=== PATIENT | male | born 1965 | race Caucasian/White ===

== ENCOUNTER 2018-06-13 11:13 | Emergency (ER) | payer SELFPAY ==
[2018-06-13] MEDS ORDERED: Sodium Chloride 0.9% 1,000 ML IV ONE (12:11)
[2018-06-13] MEDS ORDERED: Aspirin 325 mg EC Tablets PO STA (12:11)
--- NOTE | 2018-06-13 12:14 | C.PDOC ---
History Of Present Illness 53 yo male w/PMhx of HTN, NIDDM come in for evaluation of Left sided chest pain gradually developed for past 3 days. Pt reports, pain is left sided, more reproducible with intermittent radiation to left upper back ( periscapular ), (+) intermittent dizziness, mild headache. Pt denies fever, chills, recent illness, denies severe headache, vertigo, neck pain, drooling, dysphagia, dyspnea, SOB, palpitation, abd. pain, V/D, UTI sx, denies recent travel or known sick contact. AT the time of evaluation, appears comfortable, not in any apparent distress. Time Seen by Provider: 06/13/18 12:01 Chief Complaint (Nursing): Chest Pain History Per: Patient Past Medical History Reviewed: Historical Data, Nursing Documentation, Vital Signs - Medical History PMH: Diabetes, HTN Family History: States: No Known Family Hx - Social History Hx Tobacco Use: No Hx Alcohol Use: No Hx Substance Use: No - Immunization History Hx Tetanus Toxoid Vaccination: No Hx Influenza Vaccination: No Hx Pneumococcal Vaccination: No Review Of Systems Except As Marked, All Systems Reviewed And Found Negative. Constitutional: Negative for: Fever, Chills Eyes: Negative for: Vision Change ENT: Negative for: Nose Discharge, Nose Congestion Cardiovascular: Positive for: Chest Pain. Negative for: Palpitations, Orthopnea, Edema, Light Headedness Respiratory: Negative for: Cough, Shortness of Breath Gastrointestinal: Positive for: Nausea. Negative for: Vomiting, Abdominal Pain, Diarrhea Genitourinary: Negative for: Dysuria Musculoskeletal: Negative for: Neck Pain Skin: Negative for: Rash Neurological: Positive for: Headache, Dizziness. Negative for: Weakness, Numbness, Altered Mental Status Physical Exam - Physical Exam Appears: Well, Non-toxic, No Acute Distress Skin: Normal Color, Warm, Dry, No Rash Head: Normacephalic Eye(s): bilateral: PERRL Nose: No Flaring, No Discharge Oral Mucosa: Moist Throat: No Erythema, No Drooling Neck: Trachea Midline, Supple Chest: Symmetrical, No Deformity, Tenderness (mild tenderness over left anterior chest wall and over left periscapular area. ), No Ecchymosis, No Subcutaneous Emphysema Cardiovascular: Rhythm Regular, No Murmur, No JVD Respiratory: No Accessory Muscle Use, No Rales, No Rhonchi, No Stridor, No Wheezing Gastrointestinal/Abdominal: Soft, No Tenderness, No Distention, No Guarding Back: No CVA Tenderness Extremity: Normal ROM, No Pedal Edema, No Deformity, No Swelling Neurological/Psych: Oriented x3, Normal Speech ED Course And Treatment - Laboratory Results Result Diagrams: 06/13/18 12:19 12 12:19 Lab Interpretation: No Acute Changes ECG: Interpreted By Me, Viewed By Me ECG Rhythm: Sinus Rhythm ECG Interpretation: Normal Interpretation Of ECG: SR@77/min, NAD, no acute T wave oir ST-T changes - Radiology CXR: Interpreted by Me, Viewed By Me, Read By Radiologist - Other Rad CXR X-Ray: Read By Radiologist Interpretation: Impression: Few small nodules/nodular densities in the upper to mid lung zones. Correlation with prior study and or chest CT may be helpful if clinically indicated. No focal infiltrate or effusion. Tortuous aorta. Progress Note: Pt was OBS in ED for 2 hours and reports " no pain now". On re- eval, pt is afebrile, hemodynamicaly stable. non-toxic. PulsEOx 100% RA. ENT: no acute findings. neck: Supple, (-) carotid bruits B/L, (-) JVD. Lungs: CTA B/L, BS equla B/L. CVS: (+)S1S2, reg. Abd: benign. Neuorlogicaly intact. Blood work review, no acute abnoramlities noted. troponin I, EKG- normal study. CXR- no acute abnoramlities. case discussed with and discharge with outpt f/u recommend at this time. results review and discussed with pt. Advised to F/u with PMD, Card in 2-3 days for re-eval. return if any new changes. Disposition Counseled Patient/Family Regarding: Studies Performed, Diagnosis, Need For Followup, Rx Given - Disposition Referrals: [facility] [Outside] Disposition: HOME/ ROUTINE Disposition Time: 14:14 Condition: STABLE Additional Instructions: Take baby Aspirin daily Light duty, avoid strenuous activity for 1 week Follow up with PMD, cardiology in 2-3 days for re-evaluation. return to ED if any worsening or new changes. Instructions: Chest Pain (DC) Forms: [employer] (Chilean) Print Language: GREEK - Clinical Impression Clinical Impression: Chest pain
[2018-06-13 12:21] VITALS: TEMP 98.1
[2018-06-13 12:24] LABS: BASO % 0.6 % (0.0-2.0); EOS % 0.6 % (0.0-4.0); HEMOGLOBIN 16.8 g/dL (12.0-18.0); LYMPH # 1.8 K/uL (1.0-4.3); MEAN CELL VOLUME 88.5 fL (80.0-94.0); MEAN CORPUSCULAR HGB CONC 33.9 g/dL (33.0-37.0); MEAN PLATELET VOLUME 9.2 fL (7.2-11.7); MONO # 0.4 K/uL (0.0-0.8); MONO % 6.7 % (0.0-10.0); NEUT # 3.2 K/uL (1.8-7.0); NEUT % 59.1 % (50.0-75.0); RBC 5.61 Mil/uL (4.40-5.90); RED CELL DISTRIBUTION WIDTH 13.8 % (11.5-14.5); WHITE BLOOD COUNT 5.4 K/uL (4.8-10.8)
[2018-06-13 12:34] LABS: ALB/GLOB RATIO 1.4 (1.0-2.1); ALBUMIN 4.6 g/dL (3.5-5.0); ALT/SGPT 31 U/L (21-72); AST/SGOT 24 U/L (17-59); BLOOD UREA NITROGEN 12 mg/dL (9-20); GFR NON-AFRICAN AMERICAN > 60; PROTHROMBIN TIME 11.4 SECONDS (9.7-12.2)
[2018-06-13] MEDS ORDERED: Sodium Chloride 0.9% 1,000 ML ONE (12:37)
[2018-06-13 12:55] LABS: B-TYPE NATRIURETIC PEPTIDE < 11.1 pg/mL (0-900)
--- NOTE | 2018-06-13 14:30 | RAD ---
Chest x-ray two views HISTORY: Chest pain. Comparison: None available. Findings: Few small nodules/nodular densities in the upper to mid lung zones. Correlation with prior study and or chest CT may be helpful if clinically indicated. No focal infiltrate or effusion. Tortuous aorta. Heart size within normal limits. Degenerative changes in the spine. Impression: Few small nodules/nodular densities in the upper to mid lung zones. Correlation with prior study and or chest CT may be helpful if clinically indicated. No focal infiltrate or effusion. Tortuous aorta.
[2018-06-13 14:40] VITALS: BP 125/83; PULSE 69; O2SAT 99
[2018-06-13 14:41] LABS: URINE BILIRUBIN NEGATIVE (NEGATIVE); URINE BLOOD NEGATIVE (NEGATIVE); URINE CLARITY Clear (Clear); URINE COLOR Yellow (YELLOW); URINE GLUCOSE (UA) NORMAL (Normal); URINE LEUKOCYTE ESTERASE NEG Leu/uL (Negative); URINE PROTEIN NEGATIVE (NEGATIVE); URINE UROBILINOGEN NORMAL mg/dL (0.2-1.0)
--- NOTE | 2018-06-14 21:44 | CARD ---
APPROVED REPORT Date of service: 06/13/2018 EKG Measurement Heart [id number] RI [id number] <Conclusion> Normal sinus rhythm Normal ECG
== END 2018-06-13 14:42 | disposition home or self-care (01) ==
LOC: C.ER 11:13
DX: R07.9 Chest pain, unspecified (principal)
CPT/HCPCS: 71046; 80053; 81001; 83880; 84484; 85025; 85610; 85730; 93005; 96360; 99284; J7030